=== PATIENT | male | born 1985 | race Caucasian/White ===

== ENCOUNTER 2016-09-22 04:15 | Emergency (ER) | payer SELFPAY ==
[~2016-09-22] VITALS: Ht 180.3 cm; Wt 167.0 kg
[~2016-09-22 04:15] MED LIST: ALBU18HF INHALATION; AZIT500T5 PO; BECL8.7A INH; CYCL-319 PO; IBUP800T25 PO
[2016-09-22 04:20] VITALS: Ht 180.3 cm; Wt 167.0 kg
[2016-09-22] MEDS ORDERED: CETI10CA PO (05:20)
[2016-09-22] MEDS ORDERED: ALBU8.5H3 INH (05:20)
[2016-09-22] MEDS ORDERED: GUAI120S26 PO (05:20)
[2016-09-22] MEDS ORDERED: QVAR40 INH (05:20)
--- NOTE | 2016-09-22 05:32 | ERD ---
ER Documentation Chief Complaint Date/Time DATE: 09/22/16 TIME: 05:25 Chief Complaint cough/sob x 2 days. run out of inhaler HPI 31-year-old male presents to emergency department for complaints of cough and wheezing for the last 2 days. Ran out of his inhaler. Patient has been having dry cough, does not cough up any phlegm or blood. Patient ran out of his albuterol and Qvar. Patient does not have any fever or chills. Patient does not have any sore throat or ear pain. Patient denies any dyspnea on exertion or dyspnea on lying down. Patient denies any palpitations or irregular heartbeat. Patient denies any dizziness. ROS All systems reviewed and are negative except as per history of present illness. Medications Home Meds Active Scripts Cetirizine Hcl* (Zyrtec*) 10 Mg Capsule, 10 MG PO DAILY, #30 TAB.CHEW Prov:CHAN SPENCER BLUEPRINT CLERK 09/22/16 Bijjmfjcgiw-T-Ywcqasnstr Hb* (Guaifenesin* DM Syrup) 120 Ml Syrup, 10 ML PO Q4H Y for COUGH, #120 ML Prov:CHAN SPENCER BLUEPRINT CLERK 09/22/16 Beclomethasone Dip (Qvar 40) 1 Puff Inha, 2 PUFF INH BID, #1 INHALER Prov:CHAN SPENCER BLUEPRINT CLERK 09/22/16 Albuterol Sulfate* (Proair HFA*) 8.5 Gm Hfa.aer.ad, 2 PUFF INH Q4H Y for WHEEZING AND SOB, #1 INHALER Prov:CHAN SPENCER BLUEPRINT CLERK 09/22/16 Azithromycin* (Azithromycin*) 500 Mg Tablet, 500 MG PO DAILY, #3 TAB Prov:RAVI SANABRIA DO 07/10/16 Albuterol Sulfate* (Ventolin HFA*) 18 Gm Hfa.aer.ad, 2 PUFF INHALATION Q4H, #2 INHALER Prov:GREENRAVI DO 07/10/16 Beclomethasone Dip* (Qvar 40*) 7.3 Gm Inha, 1 PUFF INH BID, #1 INHALER Prov:GREENRAVI DO 07/10/16 Ibuprofen* (Motrin*) 800 Mg Tab, 800 MG PO Q6, #20 TAB Prov:LYNDSEY LOPEZ Brian WOOSD 10/31/15 Cyclobenzaprine Hcl* (Cyclobenzaprine Hcl*) 10 Mg Tablet, 10 MG PO TID, #15 TAB Prov:LYNDSEY LOPEZ PEGGY 10/31/15 Allergies Allergies: Coded Allergies: No Known Allergy (Unverified , 09/22/16) PMhx/Soc History of Surgery: No Anesthesia Reaction: No Hx Neurological Disorder: No Hx Respiratory Disorders: Yes (asthma) Hx Cardiac Disorders: No Hx Psychiatric Problems: No Hx Miscellaneous Medical Probl: No Hx Alcohol Use: No Hx Substance Use: No Hx Tobacco Use: No Smoking Status: Former smoker FmHx Family History: No coronary disease, No diabetes, No other Physical Exam Vitals Vital Signs Date Time Temp Pulse Resp B/P Pulse Ox O2 Delivery O2 Flow Rate FiO2 09/22/16 04:20 98.2 90 20 117/62 97 Physical Exam GENERAL: The patient is well developed and appropriate for usual state of health, in no apparent distress. CHEST: Clear to auscultation bilaterally. There are no rales, wheezes or rhonchi. HEART: Regular rate and rhythm. No murmurs, clicks, rubs or gallops. No S3 or S4. ABDOMEN: Soft, nontender and nondistended. Good bowel sounds. No rebound or guarding. No gross peritonitis. No gross organomegaly or masses. No Oquendo sign or McBurney point tenderness. BACK: No midline or flank tenderness. EXTREMITIES: Equal pulses bilaterally. There is no peripheral clubbing, cyanosis or edema. No focal swelling or erythema. Full range of motion. Grossly neurovascularly intact. NEURO: Alert and oriented. Cranial nerves 2-12 intact. Motor strength in all 4 extremities with 5/5 strength. Sensation grossly intact. Normal speech and gait. SKIN: There is no apparent rash or petechia. The skin is warm and dry. HEMATOLOGIC AND LYMPHATIC: There is no evidence of excessive bruising or lymphedema. No gross cervical, axillary, or inguinal lymphadenopathy. Procedures/MDM Medical Decision Making: Patient symptoms are most likely consistent with acute bronchitis, which viral in origin. Patient does not have wheezing at this time. There is low suspicion for Pneumonia at this time since patients lungs sounds are clear, patient O2 saturation is normal and patient doesnt show any respiratory distress. Radiology exam is not indicated at this time. There is low suspicion for other cardiopulmonary emergencies at this time such as CHF, Pulmonary Embolism, Pneumothorax, Aortic Aneurysm or any other cardiopulmonary emergencies at this time. There is low suspicion for sepsis. Patient appears well and is hemodynamically stable. Patient does not have any fever. Disposition: Home. Condition: Stable Prescriptions: Qvar albuterol with guaifenesin DM Zyrtec ibuprofen Instructions: Patient is advised to take medications as prescribed. Patient is advised to rest. Patient advised to increase fluid intake, do humidifier at home and if possible, do salt water gargles. Patient is advised that if symptoms are worse, shortness of breath, uncontrolled fever, stridor, vomiting, worst signs and symptoms to return to emergency department immediately. Otherwise, patient is advised to follow up with primary doctor in 5-7 days. Departure Diagnosis: Primary Impression: Acute bronchitis Bronchitis organism: unspecified organism Qualified Code: J20.9 - Acute bronchitis, unspecified organism Condition: Stable Patient Instructions: Bronchitis With Wheezing (Adult) CHAN SPENCER NP Sep 22, 2016 05:32
[2016-09-22 06:07] VITALS: BP 134/71; PULSE 80; RESP 18; TEMP 97.8
== END 2016-09-22 06:12 | disposition home or self-care (01) ==
LOC: FTE 04:15
DX: J20.9 Acute bronchitis, unspecified (principal); J45.909 Unspecified asthma, uncomplicated; Z87.891 Personal history of nicotine dependence
CPT/HCPCS: 99284